=== PATIENT | male | born 1935 | race Caucasian/White ===

== ENCOUNTER 2016-08-25 14:02 | Day surgery (SDC) | payer BC ==
[~2016-08-25] VITALS: Ht 177.8 cm; Wt 64.0 kg
[~2016-08-25 14:02] MED LIST: ASPEC81 PO; CEFAZOLIN 1000MG/55 ML D5W IV SCH; LACTATED RINGER'S 1000ML 1,000 ML IV SCH; LISI5TAB3 PO; METR1GEL3; OXYC10TA31 PO
[2016-08-25] MEDS ORDERED: CHOL2000 PO (14:31)
[2016-08-25] MEDS ORDERED: OMEG10007 PO (14:31)
[2016-08-25] MEDS ORDERED: CARV12.5 PO (14:31)
[2016-08-25] MEDS ORDERED: TORS20TA2 PO (14:32)
[2016-08-25 14:40] VITALS: BP 135/86; PULSE 83; TEMP 36.5; O2SAT 98; Ht 177.8 cm; Wt 64.0 kg
[2016-08-25] MEDS ORDERED: LIDOCAINE HCL 1% 20 ML VIAL ONE ×2 (17:47→17:48)
[2016-08-25] MEDS ORDERED: BACITRACIN 50000 UNIT VIAL ONE (17:47)
[2016-08-25] MEDS ORDERED: BACITRACIN OINT 0.9 GM PKT ONE (17:55)
--- NOTE | 2016-08-25 18:08 | History & Physical Bridge Note ---
H&P Re-Evaluation Bridge Note: I have examined the patient, reviewed the History & Physical and in the interval since the performance of the History & Physical I have noted the following changes of clinical significance: No changes noted. I discussed the indications, procedure, risks and alternatives with him and his family and they understand and he agrees to proceed. Consent obtained.
--- NOTE | 2016-08-25 18:08 | Procedure Note ---
Pre-Mod Sedation Assessment General Date of Moderate Sedation: Aug 25, 2016. Vital Signs: Vital Signs Past 12 Hours Date Time Temp Pulse Resp B/P Pulse Ox O2 Delivery O2 Flow Rate FiO2 08/25/16 14:40 36.5 83 18 135/86 98 Room Air Review Cardiovascular: regular rate, rhythm Abdomen: normal bowel sounds Lungs: lungs clear Pre-Sedation Airway Assessment Oral Cavity: WNL Smoking Status: Former Smoker Procedure Planning Contraindications-for Mod Sed: None Yes Notes The planned sedation has been discussed with the patient and consent obtained. I have identified the patient, determined the appropriateness of sedation and have assessed the patient immediately prior to the procedure. All medicine(s) and interventions are by my order.
[2016-08-25] MEDS ORDERED: FENTANYL CITRATE INJ 50 MCG/1 ML 2 ML VIAL ONE (18:10)
[2016-08-25] MEDS ORDERED: MIDAZOLAM HCL 5 MG/ML 1 ML VIAL ONE (18:11)
--- NOTE | 2016-08-25 18:49 | Procedure Note ---
Post-Mod Sedation Assessment General Date of Moderate Sedation Aug 25, 2016. Vital Signs: Vital Signs Past 12 Hours Date Time Temp Pulse Resp B/P Pulse Ox O2 Delivery O2 Flow Rate FiO2 08/25/16 14:40 36.5 83 18 135/86 98 Room Air Review - Discharge Criteria Vital Signs Stable: Yes Alert/Oriented/Conversant: Yes Returned to Baseline Mental St: Yes Nausea Absent/Minimal: Yes Pain/Discomfort/Absent/Minimal: Yes Normal/Baseline Respirations: Yes Active Bleeding?: No
--- NOTE | 2016-08-25 18:51 | Cardiology Procedure Brief Nt ---
Preliminary Cardiology Note Procedure Date Aug 25, 2016. Pre-Procedure Diagnosis pacemaker battery depletion Post-Procedure Diagnosis same Procedure(s) Performed Dual-chamber pacemaker replacement Coding Compliance Manager Dr. Hernandez Product Demonstrator(s) none Estimated Blood Loss 20 cc Preliminary Findings Good chronic lead measurements Recommendations Monitor briefly and discharge Specimens Old pacemaker return to Medtronic Anesthesia local with sedation Complication(s) None Disposition MTU
[2016-08-25 19:00] VITALS: BP_SYST 133; BP_SYST 76; BP_DIAS 55; BP_DIAS 76; PULSE 61; TEMP 36.3; O2SAT 95
[2016-08-25] MEDS ORDERED: KETOROLAC TROMETHAMINE 10 MG TAB PO PRN (19:00)
[2016-08-25] MEDS ORDERED: ACETAMINOPHEN 325 MG TAB PO PRN (19:00)
[2016-08-25 19:15] VITALS: BP 135/75; PULSE 61; O2SAT 94
[2016-08-25 19:30] VITALS: BP 118/62; PULSE 60; O2SAT 95
[2016-08-25] MEDS ORDERED: CEPH500C2 PO (19:44)
--- NOTE | 2016-08-25 19:46 | Discharge Instructions ---
Discharge Instructions Admission Reason for Admission: Pacemaker battery depletion Discharge Discharge Diagnosis / Problem: pacemaker replacement Discharge Goals Goal(s): Improve disease control Activity Recommendations Activity Limitations: resume your previous activity . Instructions / Follow-Up Instructions / Follow-Up ACTIVITY RECOMMENDATIONS: * Do not raise affected arm over head for 2 weeks. SPECIAL CARE INSTRUCTIONS: * If bleeding occurs, apply direct pressure to area for 5 minutes. * Call your doctor if you have severe pain, fever, drainage or bleeding at site. * Keep dressing on and dry. * Keep any scheduled doctor's appointment. * Implant Card - hand held device with website information given. SKIN IRRITATION: * You may experience some redness and/or swelling in the area where radiation was administered. If any skin irritation occurs, please contact your family physician. FOLLOW UP VISIT: Dr. Hernandez , 08/27/2016, 10:00 AM. Current Hospital Diet Patient's current hospital diet: AHA Diet (Heart Healthy) Discharge Diet Recommended Diet: AHA Diet (Heart Healthy) Procedures Procedures Performed: Pacemaker replacement Pending Studies Studies pending at discharge: no Medical Emergencies . Who to Call and When: Medical Emergencies: If at any time you feel your situation is an emergency, please call 911 immediately. . Non-Emergent Contact Non-Emergency issues call your: Primary Care Provider . . "Provider Documentation" section prepared by Charli Hernandez. VTE Core Measure Inpt VTE Proph given/why not?: Treatment not indicated
[2016-08-25 20:00] VITALS: BP 142/76; PULSE 60; O2SAT 95
[2016-08-25 20:39] VITALS: BP 135/73; PULSE 60; TEMP 36.3; O2SAT 95
--- NOTE | 2016-09-23 10:58 | OPERATIVE REPORT ---
DATE OF OPERATION: 08/25/2016 AMBULATORY OPERATIVE REPORT PREOPERATIVE DIAGNOSIS: Pacemaker battery depletion. POSTOPERATIVE DIAGNOSIS: Same. PROCEDURE: Dual-chamber pacemaker replacement. SURGEON: Charli Hernandez MD ANESTHESIA: Local with sedation. HISTORY: This is an 80-year-old male who has a history of dual-chamber pacemaker implantation originally on 12/20/2007. His device reached battery depletion and therefore, needs to be replaced. He is therefore brought to the laboratory for device replacement. Prior to replacement, the leads appeared to be functioning well. DESCRIPTION OF PROCEDURE: After obtaining informed consent for the procedure, he was brought to the laboratory on the afternoon of 08/25/2016 being n.p.o. after breakfast. He was identified in the laboratory, prepped and draped in standard sterile manner for a pacemaker replacement. The prepectoral region was anesthetized with 1% lidocaine local anesthetic and a 5-cm incision was made through the old implant scar and carried down to the pacemaker generator. The generator was dissected free of tissue and explanted. The pacemaker was confirmed to be a Medtronic [id number], serial #[id number], implanted 12/20/2007. This device will be returned to [employer]. The atrial lead is a Medtronic, model #5568, serial #[id number], implanted 12/20/2007. This lead was evaluated in bipolar configuration at a pulse width of 0.5 milliseconds. Pacing threshold was 0.5 volts with a current of 1.1 milliamp, 5-volt lead impedance was 565 ohms and P waves were sensed at 7.1 millivolts. This is a good threshold and this lead can be used. The atrial lead is a Medtronic, model 4092, serial #[id number], implanted 12/20/2007. This lead was evaluated in bipolar configuration at a pulse width of 0.5 milliseconds. Pacing threshold was 0.6 volts with a current of 1.2 milliamp, 5-volt lead impedance was 513 ohms and R waves were sensed at 5.9 millivolts. This is a good threshold and this lead can also be used. A new pacemaker (Medtronic Adapta) was attached to the leads and found to be functioning normally. It was placed in the pocket with the leads coiled beneath it and the incision was closed with a running double subcutaneous closure of 3-0 Vicryl followed by running subcuticular skin closure of 4-0 Vicryl. Bacitracin ointment was placed on incision and pressure dressing applied. The patient tolerated the procedure well, there were no complications and estimated blood loss was 20 mL. The patient was transferred to the ambulatory unit for brief observation and discharged. Details of the explanted pacemaker and the chronic leads are noted above. The new pacemaker is a Medtronic Adapta [id number], serial #[id number]. The pacemaker was reprogrammed in the laboratory to final settings. JESUS
== END 2016-08-25 20:45 | disposition home or self-care (01) ==
LOC: C.ACU 14:02
PROVIDERS: ATTEND Internal Medicine Cardiovascular Disease
DX: Z45.010 Encounter for checking and testing of cardiac pacemaker pulse generator [battery] (principal); R60.9 Edema, unspecified; R06.09 Other forms of dyspnea; E78.5 Hyperlipidemia, unspecified; I10 Essential (primary) hypertension; Z79.82 Long term (current) use of aspirin

== ENCOUNTER 2016-10-30 16:28 | Emergency (ER) | payer BC ==
[~2016-10-30] VITALS: Ht 177.8 cm; Wt 63.9 kg
[~2016-10-30 16:28] MED LIST changes: +CARV12.5 PO; -CEFAZOLIN 1000MG/55 ML D5W IV SCH; +CEPH500C2 PO; +CHOL2000 PO; -LACTATED RINGER'S 1000ML 1,000 ML IV SCH; -LISI5TAB3 PO; -METR1GEL3; +OMEG10007 PO; -OXYC10TA31 PO; +TORS20TA2 PO
[2016-10-30 16:39] VITALS: Ht 177.8 cm; Wt 63.9 kg
[2016-10-30 17:01] VITALS: O2SAT 98
--- NOTE | 2016-10-30 18:09 | EMERGENCY ROOM VISIT NOTE ---
History Report prepared by Pablo: Jairo Mariano Under the Supervision of: Dr. Adriana Bianchi D.O. First contact with patient: 17:12 Chief Complaint: HYPERTENSION Stated Complaint: ELEVATED BP- [facility] REFERRED History of Present Illness The patient is an 80 year old male who presents to the Emergency Room with complaints of hypertension exacerbation that started this morning. The patient has a history of hypertension that is well-controlled with medications. The patient became dizzy and unsteady on his feet last night and again this morning. He notes that this has occurred before when he got up too quick. He measured his blood pressure, which was in the 180s systolically. He notes that he measured his blood pressure approximately every 3 minutes, and the pressure increased every time. The patient did not miss his medications this morning. The patient was referred to the ED by his PCP. He denies any headaches, chest pain, or shortness of breath. He takes baby aspirin daily. The patient has a pacemaker. He is a former smoker. Patient was a poor historian. Source of History: patient Onset: this morning Position: other (global) Quality: other (hypertension) Timing: other (exacerbation) Associated Symptoms: No SOB, No chest pain, No headache Note: Positive dizziness. Review of Systems See HPI for pertinent positives & negatives. A total of 10 systems reviewed and were otherwise negative. Past Medical & Surgical Medical Problems: (1) HTN (hypertension) (2) Pacemaker Family History No pertinent family history Social History Smoking Status: Former Smoker Occupation Status: retired Current/Historical Medications Scheduled Aspirin Enteric Coated (Ecotrin Or Generic *), 81 MG PO DAILY Carvedilol (Coreg), 1 TAB PO BID Cholecalciferol (Vitamin D3), 1 CAP PO DAILY Fish Oil ([place]-3), 1 CAP PO DAILY Allergies Coded Allergies: Azithromycin (Verified Allergy, Unknown, "can't remember", 10/30/16) [place] [facility] [place] Lisinopril (Verified Allergy, Unknown, "can't remember", 10/30/16) info [place] [facility] Physical Exam Vital Signs Date Time Temp Pulse Resp B/P Pulse Ox O2 Delivery O2 Flow Rate FiO2 10/30/16 21:47 36.7 89 18 144/96 96 10/30/16 21:18 89 18 144/96 96 Room Air 10/30/16 19:06 163/87 10/30/16 18:50 171/89 10/30/16 18:18 68 18 10/30/16 18:13 62 17 10/30/16 18:08 61 18 10/30/16 18:03 63 12 10/30/16 17:58 60 24 10/30/16 17:53 60 13 10/30/16 17:48 63 12 10/30/16 17:43 63 18 10/30/16 17:38 62 13 10/30/16 17:33 61 24 10/30/16 17:28 61 21 10/30/16 17:23 61 16 10/30/16 17:18 60 13 10/30/16 17:15 60 10/30/16 17:01 98 Room Air 10/30/16 16:39 36.7 80 20 187/104 96 Room Air Physical Exam GENERAL: Anxious appearing. Poor historian. EYE EXAM: normal conjunctiva, PERRL and EOM's grossly intact OROPHARYNX: no exudate, no erythema, lips, buccal mucosa, and tongue normal and mucous membranes are moist NECK: supple, no nuchal rigidity, no adenopathy, non-tender LUNGS: Clear to auscultation. Normal chest wall mechanics HEART: no murmurs, S1 normal and S2 normal ABDOMEN: abdomen soft, non-tender, normo-active bowel sounds, no masses, no rebound or guarding. BACK: Back is symmetrical on inspection and there is no deformity, no midline tenderness, no CVA tenderness. SKIN: no rashes and no bruising UPPER EXTREMITIES: upper extremities are grossly normal. LOWER EXTREMITIES: No pitting edema. NEURO EXAM: Normal sensorium, cranial nerves II-XII grossly intact, normal speech, no gross weakness of arms, no gross weakness of legs. Gross sensation intact. Medical Decision & Procedures ER Provider Diagnostic Interpretation: Xray results per the radiologist and my interpretation. Other results have been interpreted by the radiologist and reviewed by me. CT HEAD WITHOUT CONTRAST (CT) CLINICAL HISTORY: Hypertension, dizziness. COMPARISON STUDY: No previous studies for comparison. TECHNIQUE: Axial CT of the brain is performed from the vertex to the skull base. IV contrast was not administered for this examination. CT DOSE: 537.48 mGy.cm FINDINGS: No intra or extra-axial mass lesions are visualized. There is no CT evidence of acute cortical infarction. There is no evidence of midline shift. There is no acute hemorrhage. No calvarial fractures are visualized. There are minimal white matter hypodensities likely on a small vessel basis. There is no evidence of pathologic ventricular dilatation. There is opacification of the visualized portion of the left maxillary sinus. There is increased soft tissue within the left nasal cavity. IMPRESSION: No acute intracranial findings Electronically signed by: Dickson Lugo M.D. 10/30/2016 6:38 PM Dictated Date/Time: 10/30/2016 6:36 PM CHEST ONE VIEW PORTABLE CLINICAL HISTORY: Hypertension, dizziness. COMPARISON STUDY: 12/20/2007 FINDINGS: The cardiac and mediastinal contours are normal. There is no evidence of focal pulmonary consolidation. There is no evidence of failure. No pleural effusions are visualized.[ There is a left subclavian dual-chamber central venous pacemaker. There is evidence for interval rotation of the generator/battery pack. IMPRESSION: No active disease in the chest. Electronically signed by: Dickson Lugo M.D. 10/30/2016 7:19 PM Dictated Date/Time: 10/30/2016 7:18 PM Laboratory Results 10/30/16 16:50 Red Blood Count 4.95, Mean Corpuscular Volume 90.5, Mean Corpuscular Hemoglobin 31.9, Mean Corpuscular Hemoglobin Concent 35.3, Mean Platelet Volume 10.1, Neutrophils (%) (Auto) 51.4, Lymphocytes (%) (Auto) 39.5, Monocytes (%) (Auto) 7.1, Eosinophils (%) (Auto) 1.5, Basophils (%) (Auto) 0.4, Neutrophils # (Auto) 3.71, Lymphocytes # (Auto) 2.85, Monocytes # (Auto) 0.51, Eosinophils # (Auto) 0.11, Basophils # (Auto) 0.03 10/30/16 16:50 Test 10/30/16 16:50 White Blood Count 7.22 K/uL (4.8-10.8) Red Blood Count 4.95 M/uL (4.7-6.1) Hemoglobin 15.8 g/dL (14.0-18.0) Hematocrit 44.8 % (42-52) Mean Corpuscular Volume 90.5 fL (80-100) Mean Corpuscular Hemoglobin 31.9 pg (25-34) Mean Corpuscular Hemoglobin Concent 35.3 g/dl (32-36) Platelet Count 178 K/uL (130-400) Mean Platelet Volume 10.1 fL (7.4-10.4) Neutrophils (%) (Auto) 51.4 % Lymphocytes (%) (Auto) 39.5 % Monocytes (%) (Auto) 7.1 % Eosinophils (%) (Auto) 1.5 % Basophils (%) (Auto) 0.4 % Neutrophils # (Auto) 3.71 K/uL (1.4-6.5) Lymphocytes # (Auto) 2.85 K/uL (1.2-3.4) Monocytes # (Auto) 0.51 K/uL (0.11-0.59) Eosinophils # (Auto) 0.11 K/uL (0-0.5) Basophils # (Auto) 0.03 K/uL (0-0.2) RDW Standard Deviation 45.1 fL (36.4-46.3) RDW Coefficient of Variation 13.7 % (11.5-14.5) Immature Granulocyte % (Auto) 0.1 % Immature Granulocyte # (Auto) 0.01 K/uL (0.00-0.02) Anion Gap 9.0 mmol/L (3-11) Est Creatinine Clear Calc Drug Dose 47.6 ml/min Estimated GFR () 72.6 Estimated GFR (Non- 62.6 BUN/Creatinine Ratio 22.6 (10-20) Calcium Level 9.1 mg/dl (8.5-10.1) Total Bilirubin 1.0 mg/dl (0.2-1) Aspartate Amino Transf (AST/SGOT) 36 U/L (15-37) Alanine Aminotransferase (ALT/SGPT) 34 U/L (12-78) Alkaline Phosphatase 127 U/L (45-117) Troponin I < 0.015 ng/ml (0-0.045) Pro-B-Type Natriuretic Peptide 339 pg/ml (0-1800) Total Protein 8.1 gm/dl (6.4-8.2) Albumin 4.1 gm/dl (3.4-5.0) Globulin 4.0 gm/dl (2.5-4.0) Albumin/Globulin Ratio 1.0 (0.9-2) Laboratory results per my review. Medications Administered Medications (Trade) Dose Ordered Sig/Ulysses Route Start Time Stop Time Status Last Admin Dose Admin Sodium Chloride (Nss 1000ml) 1,000 ml @ 200 mls/hr Q5H STAT IV 10/30/16 19:28 10/30/16 22:02 DC 10/30/16 17:00 200 MLS/HR ECG Indication: other (hypertension) Rate (beats per minute): 81 Rhythm: other (paced rhythm) Findings: PVC, no acute ischemic change, other (normal axis, normal QRS, normal QTC) ED Course 1729: The patient was evaluated by my medical student. We discussed the patient' s history & physical and a possible treatment plan. 1849: The patient was evaluated in room A11b. A complete history and physical exam was performed. 1927: NSS 1000 ml @ 200 mls/hr. 2104: The patient does not have any complaints. His blood pressure is still a little high. 2119: The patient's ambulatory trial went well. He is ready for discharge. Medical Decision Differential diagnosis includes hypertensive urgency, CVA, anxiety, dehydration. Pt well appearing here, non focal and reassuring neuro exam, no cardiac sx. Known hx of htn, being treated. Pt with hx of occasional lightheadedness, mostly with position change. BP improved here without intervention. Labs reassuring. Doubt ACS given neg trop >12 hours after onset of sx. Doubt dissection, cva, infectious etiology. Doubt hypertensive urgency/emergency. Mild dehydration noted, possibly contributing to symptoms. Pt ambulated here with steady gait and no recurrence of any symptoms, no new sx. Discussed with pt appropriate frequency of BP measurement, having machine calibrated with cards , f/u with PCP as a precaution, sx to watch/return for, he verbalized understanding and was agreeable with plan. Impression Primary Impression: HTN (hypertension) Additional Impression: Episodic lightheadedness Scribe Attestation The scribe's documentation has been prepared under my direction and personally reviewed by me in its entirety. I confirm that the note above accurately reflects all work, treatment, procedures, and medical decision making performed by me. Departure Information Dispostion Home / Self-Care Referrals Obed Penaloza M.D. (PCP) Forms HOME CARE DOCUMENTATION FORM, IMPORTANT VISIT INFORMATION, WORK / SCHOOL INSTRUCTIONS Patient Instructions My [facility] Additional Instructions Please call and follow-up with your family doctor next week and consider seeing your pastrycook's assistant also. Please do not check your blood pressure more than once a day, unless you are not feeling well. Please continue your regular medicine as prescribed. Please avoid any strenuous activity until you are seen by your family doctor. Please take your blood pressure machine in to be calibrated. Please be careful changing positions as this could contribute to feeling lightheaded also. If you have any recurrent episodes similar to today, develop headaches, vision changes, chest pain, trouble breathing, weakness, numbness/ tingling, or you have any other new or concerning symptoms, please return to the ER immediately. Problem Qualifiers Primary Impression: HTN (hypertension) Hypertension type: essential hypertension Qualified Codes: I10 - Essential ( primary) hypertension
[2016-10-30 18:14] LABS: BASO % 0.4 %; BASO ABS # 0.03 K/uL (0-0.2); COMPLETE YES; EOS % 1.5 %; HEMATOCRIT 44.8 % (42-52); IG% 0.1 %; LYMPH % 39.5 %; LYMPH ABS # 2.85 K/uL (1.2-3.4); MEAN CELL VOLUME 90.5 fL (80-100); MEAN CORPUSCULAR HEMOGLOBIN 31.9 pg (25-34); MEAN CORPUSCULAR HGB CONC 35.3 g/dl (32-36); MEAN PLATELET VOLUME 10.1 fL (7.4-10.4); MONO % 7.1 %; NEUT % 51.4 %; PLATELET COUNT 178 K/uL (130-400); RED BLOOD COUNT 4.95 M/uL (4.7-6.1); WHITE BLOOD COUNT 7.22 K/uL (4.8-10.8)
[2016-10-30 18:21] LABS: ALT/SGPT 34 U/L (12-78); BLOOD UREA NITROGEN 25 mg/dl (7-18); BUN/CREATININE RATIO 22.6 (10-20); CALCIUM 9.1 mg/dl (8.5-10.1); CARBON DIOXIDE 26 mmol/L (21-32); CHLORIDE 105 mmol/L (98-107); GLUCOSE 82 mg/dl (70-99); POTASSIUM 4.6 mmol/L (3.5-5.1); SODIUM 140 mmol/L (136-145)
[2016-10-30 18:26] LABS: ALKALINE PHOSPHATASE 127 U/L (45-117); AST/SGOT 36 U/L (15-37)
--- NOTE | 2016-10-30 18:39 | DIAGNOSTIC IMAGING REPORT ---
CT HEAD WITHOUT CONTRAST (CT) CLINICAL HISTORY: Hypertension, dizziness. COMPARISON STUDY: No previous studies for comparison. TECHNIQUE: Axial CT of the brain is performed from the vertex to the skull base. IV contrast was not administered for this examination. CT DOSE: 537.48 mGy.cm FINDINGS: No intra or extra-axial mass lesions are visualized. There is no CT evidence of acute cortical infarction. There is no evidence of midline shift. There is no acute hemorrhage. No calvarial fractures are visualized. There are minimal white matter hypodensities likely on a small vessel basis. There is no evidence of pathologic ventricular dilatation. There is opacification of the visualized portion of the left maxillary sinus. There is increased soft tissue within the left nasal cavity. IMPRESSION: No acute intracranial findings Electronically signed by: Dickson Lugo M.D. 10/30/2016 6:38 PM Dictated Date/Time: 10/30/2016 6:36 PM
--- NOTE | 2016-10-30 19:20 | DIAGNOSTIC IMAGING REPORT ---
CHEST ONE VIEW PORTABLE CLINICAL HISTORY: Hypertension, dizziness. COMPARISON STUDY: 12/20/2007 FINDINGS: The cardiac and mediastinal contours are normal. There is no evidence of focal pulmonary consolidation. There is no evidence of failure. No pleural effusions are visualized.[ There is a left subclavian dual-chamber central venous pacemaker. There is evidence for interval rotation of the generator/battery pack. IMPRESSION: No active disease in the chest. Electronically signed by: Dickson Lugo M.D. 10/30/2016 7:19 PM Dictated Date/Time: 10/30/2016 7:18 PM
[2016-10-30] MEDS ORDERED: SODIUM CHLORIDE 0.9% 1000ML 1,000 ML IV STA (19:28)
[2016-10-30 21:47] VITALS: BP 144/96; PULSE 89; TEMP 36.7; O2SAT 96
== END 2016-10-30 21:48 | disposition home or self-care (01) ==
LOC: C.EDB 16:29 → C.EDA 21:48
DX: I10 Essential (primary) hypertension (principal); R42 Dizziness and giddiness; Z79.82 Long term (current) use of aspirin; Z95.0 Presence of cardiac pacemaker; Z87.891 Personal history of nicotine dependence

== ENCOUNTER → 2017-03-16 | Outpatient (CLI) | payer BC ==
[~2017-03-16] MED LIST changes: -CEPH500C2 PO; -TORS20TA2 PO
[2017-03-16 13:19] LABS: BASO % 0.5 %; BASO ABS # 0.03 K/uL (0-0.2); COMPLETE YES; EOS % 2.5 %; HEMATOCRIT 44.8 % (42-52); LYMPH % 36.6 %; LYMPH ABS # 2.18 K/uL (1.2-3.4); MEAN CELL VOLUME 93.3 fL (80-100); MEAN CORPUSCULAR HEMOGLOBIN 31.3 pg (25-34); MEAN CORPUSCULAR HGB CONC 33.5 g/dl (32-36); MEAN PLATELET VOLUME 10.4 fL (7.4-10.4); MONO % 6.2 %; NEUT % 54.2 %; PLATELET COUNT 162 K/uL (130-400); WHITE BLOOD COUNT 5.96 K/uL (4.8-10.8)
[2017-03-16 13:48] LABS: ALKALINE PHOSPHATASE 105 U/L (45-117); ALT/SGPT 31 U/L (12-78); AST/SGOT 32 U/L (15-37); BLOOD UREA NITROGEN 33 mg/dl (7-18); BUN/CREATININE RATIO 25.4 (10-20); CALCIUM 8.8 mg/dl (8.5-10.1); CARBON DIOXIDE 25 mmol/L (21-32); CHLORIDE 107 mmol/L (98-107); CHOLESTEROL 192 mg/dl (0-200); CHOLESTEROL/HDL RATIO 3.8; GLUCOSE 73 mg/dl (70-99); HDL CHOLESTEROL 51 mg/dl; LDL CHOLESTEROL CALCULATED 125 mg/dl; SODIUM 139 mmol/L (136-145); TRIGLYCERIDES 81 mg/dl (0-150); VERY LOW DENSITY LIPOPROT CALC 16 mg/dl
== END | disposition home or self-care (01) ==
LOC: C.LABBC 10:06
PROVIDERS: ATTEND Internal Medicine
DX: E78.5 Hyperlipidemia, unspecified (principal)

== ENCOUNTER → 2017-09-20 | Outpatient (CLI) | payer BC ==
--- NOTE | 2017-09-20 11:32 | DIAGNOSTIC IMAGING REPORT ---
ABDOMEN FOR HERNIA CLINICAL HISTORY: Left lower quadrant pain. COMPARISON STUDY: No previous studies for comparison. FINDINGS: Note is made of a reducible fat containing left lower quadrant hernia. This does not appear to represent an inguinal hernia as it is located superior to the inguinal canal. No additional abnormalities were identified. IMPRESSION: Reducible fat-containing left lower quadrant hernia. Electronically signed by: Parminder Yoo M.D. 09/20/2017 11:31 AM Dictated Date/Time: 09/20/2017 11:01 AM
== END ==
LOC: C.ULTRBC 09:38
PROVIDERS: ATTEND Internal Medicine
DX: R10.32 Left lower quadrant pain (principal)